=== PATIENT | male | born 1990 | race Caucasian/White ===

== ENCOUNTER 2019-04-03 07:14 | Emergency (ER) | payer BC ==
[~2019-04-03] VITALS: Ht 185.4 cm; Wt 74.8 kg
--- NOTE | 2019-04-03 07:38 | NUR ---
ED Nurse Note: PT WALKED IN TO ER TODAY FROM HOME. AOX4. PT C/O LEFT ELBOW PAIN, 10/10, AND WORSENING SWELLING AFTER FALLING OFF OF HIS SKATEBOARD X 3 DAYS AGO. PT DENIES HEAD TRAUMA OR LOC. ON ASSESSMENT, OBVIOUS SWELLING AND REDNESS NOTED TO LEFT ELBOW. HOWEVER, FULL ROM OF ELBOW, SHOULDER, WRIST, AND DIGITS. PT DENIES NUMBNESS OR TINGLING. CAP REFILL <2 SECONDS, SENSATION AND CIRCULATION INTACT. SKIN INTACT. PT STATES HE TOOK NAPROXEN 500MG PRIOR TO ARRIVAL TO ER TODAY.
[2019-04-03 07:41] VITALS: BP 122/76
[2019-04-03] MEDS ORDERED: Tylenol #3 tab (300mg/30mg) ONE (08:21)
[2019-04-03] MEDS ORDERED: Tylenol #3 tab (300mg/30mg) ORAL ONE (08:30)
--- NOTE | 2019-04-03 08:30 | NUR ---
ED Nurse Note: RADIOLOGY CALLED FOR CT.
--- NOTE | 2019-04-03 08:38 | NUR ---
ED Nurse Note: PT AMBULATED TO CT.
[2019-04-03] MEDS ORDERED: HYDROcodone/Acetamin 5/325 tab ORAL ONE (09:30)
[2019-04-03] MEDS ORDERED: Cephalexin 500mg cap ORAL ONE (10:15)
[2019-04-03] MEDS ORDERED: Bactrim-DS 1 tab ORAL ONE (10:15)
--- NOTE | 2019-04-03 10:24 | Diagnostic Imaging Report ---
Indication: Pain 3 days status post trauma Technique: No IV contrast utilized. Spiral acquisitions obtained through the left elbow Multiplanar reconstructions were generated. Total dose length product 281 mGycm. CTDIvol(s) 10 mGy. Radiation dose was minimized using automated exposure control Comparison: none Findings: There is no evidence of acute fracture. No evidence of joint effusion. The soft tissues demonstrate considerable dorsal soft tissue swelling, predominantly involving the subcutaneous fat. There is a prominent trochlear lymph node which demonstrates preserved rosaline architecture. Impression: No acute bony trauma Soft tissue swelling, presumably related to history of recent trauma The CT scanner at [facility] is accredited by the [employer] and the scans are performed using protocols designed to limit radiation exposure to as low as reasonably achievable to attain images of sufficient resolution adequate for diagnostic evaluation.
[2019-04-03] MEDS ORDERED: NORCO 5-325 TA1 EACH ORAL (10:45)
[2019-04-03] MEDS ORDERED: BACTRIM DS TAB1 EAC1 ORAL (10:45)
[2019-04-03] MEDS ORDERED: CEPHALEXIN500 MG ORAL (10:45)
[2019-04-03 10:51] VITALS: BP 118/72
--- NOTE | 2019-04-03 10:51 | NUR ---
ED Nurse Note: PT SITTING PEACEFULLY IN BED IN NAD. AOX4. PRESCRIPTIONS AND DISCHARGE PAPERWORK EXPLAINED TO PT. PT VERBALIZES UNDERSTANDING AND ALL QUESTIONS ANSWERED. PRESCRIPTIONS AND DISCHARGE PAPERWORK GIVEN TO PT AND ID WRISTBAND REMOVED. PT WALKED OUT OF ER WITH STEADY GAIT AND ALL BELONGINGS.
--- NOTE | 2019-04-03 11:11 | Emergency Room Report ---
History of Present Illness General Chief Complaint: Upper Extremity Injury Source: Patient Present Illness HPI 28-year-old male presents ED for evaluation. Complaining of swelling and pain to the left elbow. States that few days ago he had a mechanical fall from his skateboard and landed on his elbow. States he is been having pain and swelling since. Went to an urgent care yesterday and had x-rays which were normal but states the swelling is persisting. Pain is also getting worse. Throbbing, 9 out of 10, nonradiating. Denies any other injuries. No other aggravating relieving factors. Denies any other associated symptoms Allergies: Coded Allergies: No Known Allergies (Unverified , 04/03/19) Patient History Past Medical History: none Past Surgical History: none Pertinent Family History: none Social History: Denies: smoking, alcohol use, drug use Immunizations: UTD Reviewed Nursing Documentation: PMH: Agreed; PSxH: Agreed Nursing Documentation-PMH Past Medical History: No History, Except For Review of Systems All Other Systems: negative except mentioned in HPI Physical Exam Vital Signs Date Time Temp Pulse Resp B/P (MAP) Pulse Ox O2 Delivery O2 Flow Rate FiO2 04/03/19 07:24 97.9 97 18 128/80 (96) 96 Room Air Sp02 EP Interpretation: reviewed, normal General Appearance: no apparent distress, alert, GCS 15, non-toxic Head: normocephalic Eyes: bilateral eye normal inspection, bilateral eye PERRL ENT: normal ENT inspection Neck: normal inspection Respiratory: normal inspection Cardiovascular #1: normal inspection Gastrointestinal: normal inspection Rectal: deferred Genitourinary: no CVA tenderness Musculoskeletal: swelling, tender - L elbow Neurologic: alert, oriented x3, responsive, motor strength/tone normal, sensory intact, speech normal Psychiatric: normal inspection Skin: other - erythema/induration to L elbow. no fluctuance or discharge Lymphatic: normal inspection Procedures Splinting Splinting : Consent: Verbal Pre-Made Type: sling Pre-Proc Neuro Vasc Exam: normal Post-Proc Neuro Vasc Exam: normal Patient Tolerated: Well Complications: None Medical Decision Making Diagnostic Impression: Primary Impression: Cellulitis of elbow ER Course Hospital Course 28 yo M presents with L elbow pain/swelling. s/p fall Differential diagnoses include: Fracture, dislocation, sprain, contusion Clinical course Patient placed on stretcher. After initial history, goals male in no acute distress. There is swelling to the left elbow along with erythema. No fluctuance or discharge. No crepitus. given that patient had prior x-ray which was negative we will order CT at this time. CT shows no obvious fracture, no joint effusion however substantial soft tissue swelling which is likely cellulitic. not clinically concerning for joint space infection. I discussed findings with patient. Placed in sling. Given antibiotics. Will discharge to home I will provide orthopedic referrals Diagnosis - cellulitis of elbow Stable and discharged to home with prescription for Fletcher, Keflex, bactrim. warm compresses. weight bear as tolerated. Followup with PMD/ortho. Return to ED if symptoms recur or worsen CT/MRI/US Diagnostic Results CT/MRI/US Diagnostic Results : Imaging Test Ordered: CT Elbow Impression Findings: There is no evidence of acute fracture. No evidence of joint effusion. The soft tissues demonstrate considerable dorsal soft tissue swelling, predominantly involving the subcutaneous fat. There is a prominent trochlear lymph node which demonstrates preserved rosaline architecture. Impression: No acute bony trauma Last Vital Signs Date Time Temp Pulse Resp B/P (MAP) Pulse Ox O2 Delivery O2 Flow Rate FiO2 04/03/19 10:51 98.3 82 18 118/72 100 Room Air Status: improved Disposition: HOME, SELF-CARE Condition: Stable Scripts Trimethoprim/Sulfamethoxazole 160/800* (BACTRIM DS TABLET*) 1 Each Tablet 1 TAB ORAL Q12H, #14 TAB 0 Refills Prov: Soto Reich MD 04/03/19 Cephalexin* (KEFLEX*) 500 Mg Capsule 500 MG ORAL EVERY 6 HOURS for 7 Days, CAP Prov: Soto Reich MD 04/03/19 Hydrocodone Bit/Acetaminophen 5-325* (NORCO 5-325*) 1 Each Tablet 1 TAB ORAL Q6H PRN for For Pain, #12 TAB 0 Refills Prov: Soto Reich MD 04/03/19 Referrals: Tony Hobbs MD, David B. MD Departure Forms: Return to Work Patient Instructions: Cellulitis, [id number] Soto Reich MD Apr 03, 2019 11:11
== END 2019-04-03 10:52 | disposition home or self-care (01) ==
LOC: EMR 07:39
DX: L03.114 Cellulitis of left upper limb (principal); V00.131A Fall from skateboard, initial encounter; Y93.51 Activity, roller skating (inline) and skateboarding; Y92.9 Unspecified place or not applicable
CPT/HCPCS: 99284